=== PATIENT | female | born 1965 | race African-American/Black ===

== ENCOUNTER 2018-03-07 19:30 | Emergency (ER) | payer OTHER ==
[~2018-03-07] VITALS: Ht 162.6 cm; Wt 66.7 kg
--- NOTE | 2018-03-07 21:24 | NUR ---
ASSISTED DR. GALDAMEZ AT BEDSIDE FOR PELVIC EXAMINATION. CALLED LAB FOR SPECIMEN EYE SPECIALIST.
[2018-03-07 21:40] VITALS: BP 129/81
--- NOTE | 2018-03-07 21:42 | NUR ---
PATIENT DISCHARGED TO HOME IN STABLE CONDITION, AMBULATORY WITH STEADY GAIT. PATIENT VERBALIZES UNDERSTANDING REGARDING DISCHARGE PAPER WORK, PRESCRIPTION GIVEN TO PATIENT
== END 2018-03-07 21:30 | disposition home or self-care (01) ==
LOC: ER 19:30
DX: N76.0 Acute vaginitis (principal); R10.2 Pelvic and perineal pain; I10 Essential (primary) hypertension; Z90.721 Acquired absence of ovaries, unilateral; Z88.2 Allergy status to sulfonamides; Z88.1 Allergy status to other antibiotic agents; Z88.8 Allergy status to other drugs, medicaments and biological substances; Z60.2 Problems related to living alone
CPT/HCPCS: 76856; 84703; 87070; 87081; 87110; 87210; 99285; A4606; Z7610